=== PATIENT | female | born 1995 | race African-American/Black ===

== ENCOUNTER 2024-01-18 18:23 | Emergency (ER) | payer SELFPAY ==
[~2024-01-18 18:23] MED LIST: Iopamidol-370 76% 500 ML MDV (1 ML CHARGE) ONE
[2024-01-18 20:51] LABS: #Basophils Less than 0.03 10x3/uL (0.0-0.2); %Basophils 0.3 % (0.0-1.0); %Eosinophils 0.8 % (0.0-10.0); %Lymphocytes 23.6 % (21.0-51.0); %Monocytes 4.6 % (0.0-10.0); %Neutrophils 70.4 % (42.0-75.0); Hematocrit 40.9 % (36.0-47.0); Hemoglobin 12.9 g/dL (12.0-16.0); Mean Corpuscular HGB CONC 31.5 g/dL (32.0-36.0); Mean Corpuscular Volume 76.2 fL (78.0-98.0); Platelet Count 288 10x3/uL (130-400); Red Blood Cell (RBC) Count 5.37 mill/uL (4.20-5.40)
[2024-01-18 20:53] LABS: Bacteria/HPF None Seen HPF (None Seen); Bilirubin Negative (Negative); Blood, Urine Negative (Negative); CAUTI Indications for Culture Dysuria,urgency,freq; Clarity Clear (Clear); Glucose, Urine (Dipstick) Normal (Negative); Ketone, Urine Negative (Negative); Leukocyte 250 Leu/uL (Negative); Nitrite Negative (Negative); Protein, Urine (Dipstick) 20 mg/dL (Neg-Trace); Specific Gravity, Urine 1.031 (1.002-1.036); Urobilinogen Normal mg/dL (Less than 2); WBC/HPF 0-3 HPF (0-3)
[2024-01-18 20:54] LABS: Pregnancy Test - Urine (BHCG) Negative (Negative); Pregu Control Background? CLEAR/WHITE (CLR/WHITE); Pregu Control Bar Appear? YES (CONTROL BAR); Specific Gravity 1.031 (1.002-1.036); Urine Culture Reflex No No
[2024-01-18 21:09] LABS: ALT (SGPT) 11 U/L (8-55); AST (SGOT) 17 U/L (5-34); Alkaline Phosphatase 67 U/L (40-110); Anion Gap 11 mmol/L (10-20); BUN (Urea Nitrogen) 11 mg/dL (7.0-18.7); Bilirubin, Total 0.6 mg/dL (0.2-1.2); Calc. Creatinine Clearance 0 mL/min (70-130); Calcium 9.5 mg/dL (7.8-10.44); Carbon Dioxide 27 mmol/L (22-29); Chloride 106 mmol/L (98-107); Estimated GFR 112; Globulin 3.3 g/dL (2.4-3.5); Glucose 86 mg/dL (70-105); Lipase 12 U/L (8-78); Potassium 3.6 mmol/L (3.5-5.1); Protein, Total 7.3 g/dL (6.0-8.3); Sodium 140 mmol/L (136-145)
[2024-01-18] MEDS ORDERED: Ketorolac Tromethamine 30 MG (1 mL) VIAL ONE (21:17)
[2024-01-18] MEDS ORDERED: Ondansetron PF 4 MG/2 ML Vial ONE (21:17)
[2024-01-18] MEDS ORDERED: Morphine 4 MG/ML VIAL ONE (22:10)
[2024-01-18] MEDS ORDERED: Dicyclomine 20 MG/2 ML VIAL ONE (22:13)
[2024-01-18] MEDS ORDERED: fentaNYL 50 mcg/mL 1 mL Vial ONE (22:18)
== END 2024-01-19 00:41 | disposition home or self-care (01) ==
LOC: ERS 18:23
DX: K50.00 Crohn's disease of small intestine without complications (principal); F17.210 Nicotine dependence, cigarettes, uncomplicated
CPT/HCPCS: 36415; 74177; 76856; 80053; 81001; 81025; 83605; 83690; 85025; 96361; 96372; 96374; 96375; J1885; J2270; J2405; J3010; Q9967

== ENCOUNTER 2024-05-06 08:01 | Emergency (ER) | payer SELFPAY ==
[2024-05-06] MEDS ORDERED: Ondansetron PF 4 MG/2 ML Vial ONE (08:58)
[2024-05-06] MEDS ORDERED: Dexamethasone 10 MG/ML VIAL ONE (08:58)
[2024-05-06] MEDS ORDERED: Ketorolac Tromethamine 30 MG (1 mL) VIAL ONE (08:58)
[2024-05-06] MEDS ORDERED: Dicyclomine 20 MG TAB ONE (08:58)
[2024-05-06 09:35] LABS: BHCG - Serum Negative (NEGATIVE); Pregs Control Background? CLEAR/WHITE (CLR/WHITE); Pregs Control Bar Appear? YES (CONTROL BAR)
[2024-05-06 09:40] LABS: #Basophils Less than 0.03 10x3/uL (0.0-0.2); %Basophils 0.2 % (0.0-1.0); %Eosinophils 2.5 % (0.0-10.0); %Lymphocytes 16.6 % (21.0-51.0); %Monocytes 6.9 % (0.0-10.0); %Neutrophils 73.5 % (42.0-75.0); Hematocrit 36.6 % (36.0-47.0); Hemoglobin 11.3 g/dL (12.0-16.0); Mean Corpuscular HGB CONC 30.9 g/dL (32.0-36.0); Mean Corpuscular Hemoglobin 21.4 pg (27.0-31.0); Mean Corpuscular Volume 69.4 fL (78.0-98.0); Mean Platelet Volume 10.1 fL (7.4-10.4); Platelet Count 281 10x3/uL (130-400); RBC Distribution Width 17.9 % (11.5-14.5); Red Blood Cell (RBC) Count 5.27 mill/uL (4.20-5.40)
[2024-05-06 09:41] LABS: ALT (SGPT) 13 U/L (8-55); AST (SGOT) 19 U/L (5-34); Albumin 3.7 g/dL (3.5-5.0); Alkaline Phosphatase 66 U/L (40-110); Anion Gap 12 mmol/L (10-20); BUN (Urea Nitrogen) 5 mg/dL (7.0-18.7); Bilirubin, Total 0.4 mg/dL (0.2-1.2); Calc. Creatinine Clearance 0 mL/min (70-130); Calcium 9.1 mg/dL (7.8-10.44); Carbon Dioxide 25 mmol/L (22-29); Chloride 100 mmol/L (98-107); Estimated GFR 100; Globulin 3.9 g/dL (2.4-3.5); Glucose 112 mg/dL (70-105); Potassium 3.3 mmol/L (3.5-5.1); Protein, Total 7.6 g/dL (6.0-8.3); Sodium 134 mmol/L (136-145)
[2024-05-06] MEDS ORDERED: Iopamidol-370 76% 500 ML MDV (1 ML CHARGE) ONE (09:43)
[2024-05-06 10:24] LABS: Microcytosis SLIGHT = 6-15 cells HPF (0-5); Platelet Adequacy Comment Platelets Normal; Polychromasia SLIGHT = 2-3 cells HPF (0-2)
== END 2024-05-06 10:48 | disposition home or self-care (01) ==
LOC: ERS 08:01
DX: J03.90 Acute tonsillitis, unspecified (principal)
CPT/HCPCS: 70491; 80053; 84703; 85025; 87081; 87428; 87430; 96361; 96374; 96375; J1100; J1885; J2405

== ENCOUNTER 2024-08-08 14:37 | Observation (INO) | payer MEDICAID, SELFPAY ==
[2024-08-08] MEDS ORDERED: Ipratropium/Albuterol 3 ML NEB ONE ×2 (14:52→14:56)
[2024-08-08 16:14] LABS: #Basophils Less than 0.03 10x3/uL (0.0-0.2); %Basophils 0.4 % (0.0-1.0); %Eosinophils 1.3 % (0.0-10.0); %Lymphocytes 20.2 % (21.0-51.0); %Monocytes 9.8 % (0.0-10.0); %Neutrophils 68.1 % (42.0-75.0); Hematocrit 38.3 % (36.0-47.0); Hemoglobin 11.8 g/dL (12.0-16.0); Mean Corpuscular HGB CONC 30.8 g/dL (32.0-36.0); Mean Corpuscular Hemoglobin 20.6 pg (27.0-31.0); Mean Corpuscular Volume 66.7 fL (78.0-98.0); Mean Platelet Volume 9.7 fL (7.4-10.4); Platelet Count 237 10x3/uL (130-400); RBC Distribution Width 21.1 % (11.5-14.5); Red Blood Cell (RBC) Count 5.74 mill/uL (4.20-5.40)
[2024-08-08] MEDS ORDERED: methylPREDNISolone Sod Succ/PF 125 MG/2 ML VIAL ONE (16:17)
[2024-08-08] MEDS ORDERED: Acetaminophen 325 MG TAB ONE (16:17)
[2024-08-08 16:21] LABS: ALT (SGPT) 14 U/L (Less than 34); AST (SGOT) 34 U/L (11-34); Albumin 3.9 g/dL (3.1-4.5); Alkaline Phosphatase 60 U/L (40-110); Anion Gap 17 mmol/L (10-20); BUN (Urea Nitrogen) 7 mg/dL (7.0-18.7); Bilirubin, Total 0.3 mg/dL (0.3-1.2); Calc. Creatinine Clearance 0 mL/min (70-130); Calcium 9.1 mg/dL (7.8-10.44); Carbon Dioxide 21 mmol/L (22-29); Chloride 101 mmol/L (98-107); Estimated GFR 93; Globulin 4.1 g/dL (2.4-3.5); Glucose 102 mg/dL (70-105); Sodium 136 mmol/L (136-145)
[2024-08-08 16:27] LABS: Anisocytosis SLIGHT = 6-15 cells HPF (0-5); Microcytosis MODERATE=15-30 cells HPF (0-5); Platelet Adequacy Comment Platelets Normal; Polychromasia SLIGHT = 2-3 cells HPF (0-2)
[2024-08-08] MEDS ORDERED: Ipratropium Bromide 2.5 ml Neb ONE (16:37)
[2024-08-08] MEDS ORDERED: Albuterol 2.5 MG (3 mL) NEB ONE (16:37)
[2024-08-08 19:05] LABS: BHCG - Serum Negative (NEGATIVE); Pregs Control Background? CLEAR/WHITE (CLR/WHITE); Pregs Control Bar Appear? YES (CONTROL BAR)
[2024-08-08] MEDS ORDERED: Acetaminophen 325 MG TAB PO PRN (23:38)
[2024-08-08] MEDS ORDERED: Ondansetron PF 4 MG/2 ML Vial IVP PRN (23:38)
[2024-08-08] MEDS ORDERED: Benzonatate 100 MG CAP PO PRN (23:45)
[2024-08-09] MEDS: Ipratropium/Albuterol 3 ML NEB EZPAP SCH (01:03)
[2024-08-09] MEDS: Potassium Chloride 20 MEQ TAB PO SCH (01:36)
[2024-08-09 01:41] VITALS: BMI 30.5
[2024-08-09] MEDS: Enoxaparin 80 MG (0.8 mL) SYRINGE SC SCH ×2 (02:03→13:38)
[2024-08-09 04:09] LABS: #Basophils Less than 0.03 10x3/uL (0.0-0.2); #Eosinophils Less than 0.03 10x3/uL (0.0-0.7); %Lymphocytes 15.5 % (21.0-51.0); %Monocytes 2.8 % (0.0-10.0); %Neutrophils 81.3 % (42.0-75.0); Hematocrit 32.7 % (36.0-47.0); Hemoglobin 10.3 g/dL (12.0-16.0); Mean Corpuscular HGB CONC 31.5 g/dL (32.0-36.0); Mean Corpuscular Hemoglobin 20.8 pg (27.0-31.0); Mean Corpuscular Volume 65.9 fL (78.0-98.0); Platelet Count 232 10x3/uL (130-400); RBC Distribution Width 20.3 % (11.5-14.5); Red Blood Cell (RBC) Count 4.96 mill/uL (4.20-5.40)
[2024-08-09 04:32] LABS: Anion Gap 14 mmol/L (10-20); BUN (Urea Nitrogen) 5 mg/dL (7.0-18.7); Calc. Creatinine Clearance 161 mL/min (70-130); Calcium 8.6 mg/dL (7.8-10.44); Carbon Dioxide 21 mmol/L (22-29); Chloride 106 mmol/L (98-107); Estimated GFR 121; Glucose 169 mg/dL (70-105); Potassium 3.6 mmol/L (3.5-5.1); Sodium 137 mmol/L (136-145)
[2024-08-09] MEDS: Albuterol 2.5 MG (3 mL) NEB NEB PRN (04:49)
[2024-08-09] MEDS ORDERED: hydrOXYzine 25 MG TAB PO PRN (04:57)
[2024-08-09] MEDS: guaiFENesin/DM ER PO SCH (08:58)
[2024-08-09] MEDS: predniSONE 20 MG TAB PO SCH (08:58)
[2024-08-09] MEDS ORDERED: Enoxaparin 80 MG (0.8 mL) SYRINGE SC SCH (09:00)
[2024-08-09] MEDS: Ipratropium/Albuterol 3 ML NEB NEB SCH (14:18)
[2024-08-09 16:55] VITALS: BP 112/65; TEMP 98.2
== END 2024-08-09 18:26 | disposition home or self-care (01) ==
LOC: ERS 14:37 → 2SE 22:58
PROVIDERS: ADMIT Internal Medicine; ATTEND Family Medicine
DX: J45.901 Unspecified asthma with (acute) exacerbation (principal); D50.9 Iron deficiency anemia, unspecified; R79.1 Abnormal coagulation profile; Z87.891 Personal history of nicotine dependence
CPT/HCPCS: 36415; 71045; 71275; 78451; 80048; 80053; 83735; 84703; 85025; 85379; 87081; 87428; 87430; 93005; 93970; 94640; 94644; 96372; 96374; A9540; G0378; J1650; J2919; J7512; J7611; J7620; J7644; Q9967